=== PATIENT | female | born 1995 | race Caucasian/White ===

== ENCOUNTER 2018-10-12 23:15 | Emergency (ER) | payer OTHER | END 2018-10-13 04:00 | disposition home or self-care (01) | LOC: FTE 23:15 | DX: S60.459A Superficial foreign body of unspecified finger, initial encounter (principal); X58.XXXA Exposure to other specified factors, initial encounter; Y92.89 Other specified places as the place of occurrence of the external cause | CPT/HCPCS: 99282 ==